=== PATIENT | female | born 1985 | race Caucasian/White ===

== ENCOUNTER → 2022-06-22 | Outpatient (CLI) | payer BC ==
[~2022-06-22] VITALS: Ht 172.7 cm; Wt 71.0 kg
[~2022-06-22] MED LIST: CYAN-23 PO; FLUO40CA12 PO
== END | disposition home or self-care (01) ==
LOC: PREOP 05:29
PROVIDERS: ATTEND Otolaryngology Otolaryngology/Facial Plastic Surgery
DX: Z01.818 Encounter for other preprocedural examination (principal)

== ENCOUNTER 2022-06-29 06:47 | Day surgery (SDC) | payer BC ==
[2022-06-29] VITALS (11 sets, daily range): BP systolic 94–118; BP diastolic 54–86
[~2022-06-29] VITALS: Ht 172.7 cm; Wt 71.0 kg
[2022-06-29] MEDS ORDERED: LACTATED RINGERS 1,000 ML IV PRN (07:15)
[2022-06-29] MEDS ORDERED: proPOfol 200 MG/20 ML (DIPRIVAN) VIAL IV ONE (07:56)
[2022-06-29] MEDS ORDERED: MIDAZOLAM 2 MG/2 ML (VERSED) VIAL ONE (07:56)
[2022-06-29] MEDS ORDERED: ONDANSETRON 4 MG/2 ML (SDV) Z0FRAN ONE (07:56)
[2022-06-29] MEDS ORDERED: fentaNYL INJ 100 MCG/2 ML AMP ONE (07:56)
[2022-06-29] MEDS ORDERED: LIDOCAINE PF 2% 5 ML (XYLOCAINE) VIAL ONE (07:56)
[2022-06-29] MEDS ORDERED: OFLO5DRO33 EACH EAR (08:46)
[2022-06-29] MEDS ORDERED: SEVOFLURANE (ULTANE) 15 ML INHAL SOLN ONE (08:51)
[2022-06-29] MEDS ORDERED: morphine INJ 10 MG/ML 1ML (SYR OR VIAL) IVP ONE (09:00)
--- NOTE | 2022-06-29 09:01 | Progress Note-Pre Operative ---
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
--- NOTE | 2022-06-29 09:01 | Progress Note-Post Operative ---
Post-Operative Progess Note Surgeon (s)/Leather Tooler (s) Surgeon EBONI GOODWIN MD Leather Tooler n/a Pre-Operative Diagnosis Bilat Chronic Abnal Eus tube fct,rec om Post-Operative Diagnosis same Post-Op Procedure Note Date of Procedure: Jun 29, 2022 Name of Procedure Performed: bmt Description & Findings Description and Findings: n/a Anesthesia Type lma Estimated Blood Loss minimal Packing none. Specimen(s) collected/removed none EBONI GOODWIN MD Jun 29, 2022 09:01
[2022-06-29] MEDS ORDERED: APAP 325 MG/10.15 ML LIQ (TYLENOL) UDC PO PRN (09:15)
--- NOTE | 2022-06-29 13:06 | Anesthesia-General Post-Op ---
General Patient Condition Mental Status/LOC: Same as Preop Cardiovascular: Satisfactory Nausea/Vomiting: Absent Respiratory: Satisfactory Pain: Controlled Complications: Absent Post Op Complications Complications None Follow Up Care/Instructions Patient Instructions None needed. Anesthesia/Patient Condition Patient Condition Patient is doing well, no complaints, stable vital signs, no apparent adverse anesthesia problems. No complications reported per nursing. MAGALYS FELDMAN CRNA Jun 29, 2022 13:06
== END 2022-06-29 10:55 | disposition home or self-care (01) ==
LOC: SDC 06:47
PROVIDERS: ATTEND Otolaryngology Otolaryngology/Facial Plastic Surgery
DX: H65.23 Chronic serous otitis media, bilateral (principal); H69.83 Other specified disorders of Eustachian tube, bilateral; F17.210 Nicotine dependence, cigarettes, uncomplicated
CPT/HCPCS: 87081